=== PATIENT | female | born 1955 | race Caucasian/White ===

== ENCOUNTER 2020-02-02 15:31 | Emergency (ER) | payer OTHER ==
--- NOTE | 2020-02-02 15:34 | ED Physician Documentation ---
PD HPI UPPER EXT INJURY - Stated complaint Stated Complaint: LT WRIST/GLF - History obtained from History obtained from: Patient - History of Present Illness Location: Left, Wrist Type of injury: Fall (lost balance playing tennis and fell backward FOOSH.) Timing - onset: Today Timing - details: Abrupt onset, Still present Improved by: Rest Worsened by: Moving, Palpating Associated symptoms: Swelling. No: Weakness, Numbness Similar symptoms before: Has not had sx before Review of Systems Constitutional: denies: Fever, Chills Nose: denies: Rhinorrhea / runny nose, Congestion Throat: denies: Sore throat Cardiac: denies: Chest pain / pressure Respiratory: denies: Cough GI: denies: Abdominal Pain, Nausea, Vomiting Neurologic: denies: Focal weakness, Numbness, Headache, Head injury PD PAST MEDICAL HISTORY - Past Medical History Cardiovascular: None Respiratory: None Neuro: None Endocrine/Autoimmune: None - Present Medications Home Medications: Ambulatory Orders Medication Instructions Recorded Confirmed Hydrocodone/Acetaminophen [[place] 1 each PO Q6H PRN #15 tablet 02/02/20 5-325 Tablet] - Allergies Allergies/Adverse Reactions: Allergies Allergy/AdvReac Type Severity Reaction Status Date / Time No Known Drug Allergies Allergy Verified 02/02/20 15:50 PD ED PE NORMAL - Vitals Vital signs reviewed: Yes - General General: Alert and oriented X 3, Well developed/nourished, Other (Appears uncomfortable and is guardedly holding her left wrist with her other hand. There is gross dorsal tilt deformity with swelling of the left distal radius consistent with Colles' fracture.) - HEENT HEENT: Atraumatic - Neck Neck: Supple, no meningeal sign, No bony TTP, No adenopathy - Cardiac Cardiac: RRR, No murmur - Respiratory Respiratory: Clear bilaterally, Other (no chestwall tenderness) - Abdomen Abdomen: Soft, Non tender - Back Back: No spinal TTP - Derm Derm: Normal color, Warm and dry - Extremities Extremities: Other (left distal radius/wrist swelling and tenderness, deformity with dorsal tilt c/w fracture. ) - Neuro Neuro: Alert and oriented X 3, No motor deficit, No sensory deficit, Normal speech Results - Vitals Vitals: Vital Signs - 24 hr 02/02/20 02/02/20 02/02/20 15:33 15:43 16:41 Temperature 36.9 C Heart Rate 47 L 50 L 56 L Respiratory 20 16 12 Rate Blood Pressure 91/48 L 96/64 111/72 O2 Saturation 99 98 100 02/02/20 02/02/20 02/02/20 16:43 16:46 16:55 Temperature Heart Rate 55 L 55 L 59 L Respiratory 14 16 15 Rate Blood Pressure 110/75 98/67 103/70 O2 Saturation 96 98 98 02/02/20 02/02/20 16:56 16:57 Temperature Heart Rate 55 L 60 Respiratory 14 12 Rate Blood Pressure 104/65 O2 Saturation 95 Oxygen O2 Source Room air - Rads (name of study) left wrist Radiology: Prelim report reviewed, See rad report post reduction Radiology: Prelim report reviewed (improved), See rad report Procedures - Reduction Body part reduced: Left, Wrist Fracture or dislocation: Fracture Anesthesia: Hematoma block, Conscious sedation, Propofol Reduction aftercare: NV intact, Xray confirms reduction, Alignment improved, Splint applied, Sling, Patient tolerated well - Procedural sedation Sedation prep: Informed consent, Time out completed, Last meal (4 hours ago, light lunch), PE performed, AHA 1 - healthy Sedation medications: dilaudid, propofol Patient status during sedation: Responds to tactile, Maintained airway Sedation recovery: Recovered uneventfully Time in sedation (Minutes): 15 Departure - Departure Disposition: 01 Home, Self Care Clinical Impression: Accidental fall Qualifiers: Encounter type: initial encounter Qualified Code(s): W19.XXXA - Unspecified fall, initial encounter Colles' fracture of left radius Qualifiers: Encounter type: initial encounter Fracture type: closed Qualified Code(s): S52.532A - Colles' fracture of left radius, initial encounter for closed fracture Condition: Stable Record reviewed to determine appropriate education?: Yes Instructions: ED Fx Colles Wrist Redu Requ Follow-Up: Franky Gonzales MD [Provider Admit Priv/Credential] - Prescriptions: Hydrocodone/Acetaminophen [[place] 5-325 Tablet] 1 each PO Q6H PRN #15 tablet PRN Reason: Pain Comments: Keep the splint on in the arm rested with the sling or propped on a pillow. Ice elevate and rest at the often the next few days to reduce swelling. Wednesday call the orthopedic office for follow-up for likely the mid to end of the week. Use some anti-inflammatory such as naproxen or ibuprofen. To that add Tylenol or hydrocodone as needed for pains. Return if problems before orthopedic follow-up.
[2020-02-02] MEDS ORDERED: HYDROmorphone 1 MG/ML CARPUJECT IVP STA (15:45)
[2020-02-02] MEDS ORDERED: KETOROLAC 15 MG/ML VIAL IVP STA (15:45)
[2020-02-02] MEDS ORDERED: SODIUM CHLORIDE 0.9% 1,000 ML IV STA (15:46)
--- NOTE | 2020-02-02 16:19 | XRAY Report ---
PROCEDURE: Wrist 3 View LT INDICATIONS: fall with wrist fracture/deformity TECHNIQUE: 3 views of the wrist were acquired. COMPARISON: None FINDINGS: Bones: Acute comminuted and impacted distal radial shaft fracture with overlapping at fracture site a nd dorsal tilting of distal radius at fracture site. Dorsally displaced fractured fragments are also seen. No suspicious bony lesions. Scaphoid view: Scaphoid is grossly intact. Soft tissues: No suspicious soft tissue calcifications. IMPRESSION: Acute impacted and slightly displaced comminuted fracture of distal radius as above. Reviewed by: Pato Bacon MD on 02/02/2020 4:17 PM PDT Approved by: Pato Bacon MD on 02/02/2020 4:17 PM PDT Station ID: [id number]
[2020-02-02] MEDS ORDERED: PROPOFOL 200 MG/20 ML VIAL IVP STA (16:22)
--- NOTE | 2020-02-02 17:22 | XRAY Report ---
PROCEDURE: Wrist 2 View LT INDICATIONS: post reduction TECHNIQUE: 2 views of the wrist were acquired. COMPARISON: X-ray wrist 02/02/20. FINDINGS: Bones: There has been interval reduction of previous identified comminuted and impacted distal radial shaft fracture. There is relatively good anatomic alignment. No suspicious bony lesions. Soft tissues: No suspicious soft tissue calcifications. IMPRESSION: Interval reduction of distal radial shaft fracture Reviewed by: Jannie Rockwell MD on 02/02/2020 5:21 PM PDT Approved by: Jannie Rockwell MD on 02/02/2020 5:21 PM PDT Station ID: [id number]
[2020-02-02 17:24] VITALS: BP 103/67
== END 2020-02-02 17:41 | disposition home or self-care (01) ==
LOC: ED 15:31
DX: S52.532A Colles' fracture of left radius, initial encounter for closed fracture (principal); W18.30XA Fall on same level, unspecified, initial encounter; Y93.73 Activity, racquet and hand sports
CPT/HCPCS: 25605; 73100; 73110; 96361; 96374; 99152; 99284; 99285; J1170; 94770

== ENCOUNTER 2023-04-05 10:22 | Outpatient (CLI) | payer MEDICARE ==
--- NOTE | 2023-04-14 13:25 | Mammography Report ---
BILATERAL DIGITAL SCREENING MAMMOGRAM 3D/2D: 04/05/2023 CLINICAL: Routine screening. No prior exams were available for comparison. Both breasts are almost entirely fatty (category a/<25% glandular tissue). No significant masses, calcifications, or other findings are seen in either breast. IMPRESSION: NEGATIVE There is no mammographic evidence of malignancy. A 1 year screening mammogram is recommended. Based on the Tyrer Cuzick model (a risk assessment model) the patients lifetime risk is 4.0% and her 10 year risk is 2.2%. According to the ACR, ACS, and NCCN guidelines, an annual breast MRI exam kayleen g with mammogram is recommended if the patients lifetime risk is 20% or greater. This exam was interpreted at Station ID: [id number]. NOTE: For mammograms, a report in lay terms will be sent to the patient. Approximately 15% of breast malignancies will not be visualized mammographically. In the management of a palpable breast mass, a negative mammogram must not discourage biopsy of a clinically suspicious lesion. Electronically Signed By: Gucci Luke M.D. acr/dylan:04/13/2023 11:30:06 letter sent: No_Letter ACR BI-RADS Category 1: Negative 3341F PARENCHYMAL PATTERN: (F) - The breast(s) demonstrate(s) diffuse fatty replacement. BI-RADS CATEGORY: (1) - 1 Mammogram [id number] 1 year screening LATERALITY: (B)
== END 2023-04-05 10:23 | disposition home or self-care (01) ==
LOC: DI.N 10:22
DX: Z12.31 Encounter for screening mammogram for malignant neoplasm of breast (principal)

== ENCOUNTER 2023-11-01 08:00 | Outpatient (CLI) | payer MEDICARE | END 2023-11-01 08:01 | disposition home or self-care (01) | LOC: LAB.N 08:00 | PROVIDERS: ATTEND Family Medicine | DX: Z53.9 Procedure and treatment not carried out, unspecified reason (principal) ==